=== PATIENT | female | born 1950 | race Two or more races ===

== ENCOUNTER 2017-07-05 18:15 | Emergency (ER) | payer BC, MEDICARE ==
[~2017-07-05] VITALS: Ht 160 cm; Wt 77.1 kg
[2017-07-05] MEDS ORDERED: HYDROCODONE/APAP 10MG-325MG TAB PO ONE (19:15)
--- NOTE | 2017-07-05 19:52 | Diagnostic Imaging Report ---
Exam: Right elbow 3 views History: Pain Comparison: None. Findings: No fracture or malalignment. Joint spaces preserved. No abnormal soft tissue calcification or soft tissue defect. Impression: No acute osseous abnormality Signed by: Dr. Evens Castro M.D. on 07/05/2017 7:49 PM
--- NOTE | 2017-07-05 19:52 | Diagnostic Imaging Report ---
Exam: Right knee 3 views History: Pain Comparison: None. Findings: No fracture or malalignment. Joint spaces preserved. No abnormal soft tissue calcification or soft tissue defect. Impression: No acute osseous abnormality Signed by: Dr. Evens Castro M.D. on 07/05/2017 7:48 PM
--- NOTE | 2017-07-05 19:54 | Diagnostic Imaging Report ---
Exam: Right foot 3 views and right ankle 3 views History: Pain and swelling Comparison: None. Findings: Nondisplaced oblique fracture of the distal fibula extending to the tibial plafond. No additional fractures. Soft tissue swelling joint effusion. Impression: Nondisplaced oblique fracture of the distal fibula extending to the tibial plafond. Signed by: Dr. Evens Castro M.D. on 07/05/2017 7:51 PM
[2017-07-05] MEDS ORDERED: TRAMADOL HCL 50 MG TAB PO ONE ×2 (21:15→21:45)
== END 2017-07-05 22:33 | disposition home or self-care (01) ==
LOC: ER 18:15
DX: S82.874A Nondisplaced pilon fracture of right tibia, initial encounter for closed fracture (principal); S50.311A Abrasion of right elbow, initial encounter; S80.211A Abrasion, right knee, initial encounter; W01.0XXA Fall on same level from slipping, tripping and stumbling without subsequent striking against object, initial encounter; Y92.008 Other place in unspecified non-institutional (private) residence as the place of occurrence of the external cause

== ENCOUNTER 2020-04-10 10:12 | Outpatient (RCR) | payer MEDICARE | END 2020-04-12 | LOC: OT 10:12 | PROVIDERS: ATTEND Specialist | DX: M19.041 Primary osteoarthritis, right hand (principal); M65.311 Trigger thumb, right thumb ==